=== PATIENT | male | born 1995 | race Caucasian/White ===

== ENCOUNTER 2017-04-27 14:00 | Emergency (ER) | payer OTHER ==
--- NOTE | 2017-04-27 14:17 | EDPHY ---
H & P Stated Complaint: testicular pain x 1 week Time Seen by Provider: 04/27/17 14:17 HPI/ROS: CHIEF COMPLAINT: Testicular pain HISTORY OF PRESENT ILLNESS: The patient presents the ED with a 1 week history of right testicular pain. The patient's symptoms have been constant. He did have some hematospremia earlier in the week. The patient reports he is in a monogamous relationship with a single partner. The patient denies any significant history of trauma. He has a history of traumatic brain injury. He has a history of appendectomy. The patient denies any dysuria. REVIEW OF SYSTEMS: A comprehensive 10 point review of systems is otherwise negative aside from elements mentioned in the history of present illness. Source: Patient Exam Limitations: No limitations - Personal History Current Tetanus Diphtheria and Acellular Pertussis (TDAP): Yes - Medical/Surgical History Hx Asthma: No Hx Chronic Respiratory Disease: No Hx Diabetes: No Hx Cardiac Disease: No Hx Renal Disease: No Hx Cirrhosis: No Hx Alcoholism: No Hx HIV/AIDS: No Hx Splenectomy or Spleen Trauma: No Other PMH: TBI 2011, mono - Social History Smoking Status: Never smoked - Physical Exam Exam: General Appearance: Alert, no distress Eyes: Pupils equal and round no pallor or injection ENT, Mouth: Mucous membranes moist Respiratory: There are no retractions, lungs are clear to auscultation Cardiovascular: Regular rate and rhythm Gastrointestinal: Abdomen is soft and nontender, no masses, bowel sounds normal Genitourinary: Right epididymal tenderness to palpation, normal testicular lie Neurological: Grossly normal motor exam Skin: Warm and dry, no rashes Musculoskeletal: Neck is supple nontender Extremities: symmetrical, full range of motion Constitutional: Initial Vital Signs Temperature (C) 36.9 C 04/27/17 14:06 Heart Rate 80 04/27/17 14:06 Respiratory Rate 18 04/27/17 14:06 Blood Pressure 106/72 04/27/17 14:06 O2 Sat (%) 97 04/27/17 14:06 O2 Delivery Mode Room Air Allergies/Adverse Reactions: No Known Allergies Allergy (Unverified 04/27/17 14:06) Home Medications: Medication Instructions Recorded Doxycycline Hyclate [Vibramycin 100 mg PO BID #20 cap 04/27/17 100 MG (*)] Medical Decision Making - Diagnostics Imaging Results: Imaging Impressions Testicular Ultrasound 04/27/17 14:07 Impression: No evidence of testicular torsion. Right epididymitis. Left varicocele. Results called to Dr. Dada Dorman at 3:15 PM Imaging: Discussed imaging studies w/ call center coordinator Radiologist, I viewed and interpreted images myself ED Course/Re-evaluation: The patient presents to the ED for evaluation of right testicular pain. The patient has evidence of epididymitis on his ultrasound. The patient will be started on antibiotics. He received 250 mg of IM ceftriaxone will be discharged home with doxycycline. The patient is encouraged to use NSAIDs for pain. The patient will be instructed to follow up with Urology for any unimproved symptoms. The patient has been instructed to return to the ED for markedly worsening symptoms or other concerns. Differential Diagnosis: Differential diagnosis considered includes testicular torsion, epididymitis, hernia, varicocele Departure - Departure Disposition: Home, Routine, Self-Care Clinical Impression: Acute epididymitis Condition: Good Instructions: Epididymitis (ED) Additional Instructions: 1. Take antibiotics as prescribed for next 10 days. 2. Take Ibuprofen or Motrin 600 mg by mouth three times a day. 3. Return to the ED for markedly worsening symptoms or other concerns. 4. Please follow up with urologist you have been referred to for any unimproved symptoms. Referrals: Palomo Brewer MD [Medical Doctor] - As per Instructions Prescriptions: Doxycycline Hyclate [Vibramycin 100 MG (*)] 100 mg PO BID #20 cap
[2017-04-27] MEDS ORDERED: CEFTRIAXONE IM 350 MG/ML SYRINGE IM ONE (15:25)
[2017-04-27 16:10] VITALS: BP 125/89; PULSE 89; RESP 16; TEMP 98.2; O2SAT 96
== END 2017-04-27 16:17 | disposition home or self-care (01) ==
DX: N45.1 Epididymitis (principal)
CPT/HCPCS: J0696

== ENCOUNTER 2017-04-29 01:06 | Emergency (ER) | payer OTHER ==
--- NOTE | 2017-04-29 01:56 | EDPHY ---
H & P Stated Complaint: r testicular pain, seen 04/27 dx with epididimyitis, pain worse HPI/ROS: HPI CHIEF COMPLAINT: Right testicular pain recent ER visit HISTORY OF PRESENT ILLNESS: This patient very pleasant 21-year-old male he is otherwise healthy does have significant past medical history for traumatic brain injury, presents emergency room of right testicular pain. Patient was seen here few days ago and had an ultrasound that showed epididymitis no torsion. He was given IM Rocephin, and started on doxycycline referred to Urology. He has been taking ibuprofen very infrequently. Presents back to the emergency room with ongoing right testicular pain. No new trauma. No fever. Denies any other complaints. Specifically denies abdominal pain. Past Medical History: TBI Past Surgical History: No recent surgery, craniotomy Social History: Denies daily use drugs alcohol tobacco products. Family History: Noncontributory ROS REVIEW OF SYSTEMS: A comprehensive 10 point review of systems is otherwise negative aside from elements mentioned in the history of present illness. Exam Constitutional tearful, triage nursing summary reviewed, vital signs reviewed, awake/alert. Eyes normal conjunctivae and sclera, EOMI, PERRLA. HENT normal inspection, atraumatic, moist mucus membranes, no epistaxis, neck supple/ no meningismus, no raccoon eyes. Respiratory clear to auscultation bilaterally, normal breath sounds, no respiratory distress, no wheezing. Cardiovascular rate normal, regular rhythm, no murmur, no edema, distal pulses normal. Gastrointestinal soft, non-tender, no rebound, no guarding, normal bowel sounds, no distension, no pulsatile mass. Genitourinary EXAM: Circumcised, normal cremasteric reflex, both descended testes appear to be normal lie. Mild tender palpation right testicle. Mild tender palpation right epididymis. Left testicle normal. Left epididymis normal. No scrotal cellulitis. No significant swelling on exam. No palpable hernia. Musculoskeletal no midline vertebral tenderness, full range of motion, no calf swelling, no tenderness of extremities, no meningismus, good pulses, neurovascularly intact. Skin pink, warm, & dry, no rash, skin atraumatic. Neurologic awake, alert and oriented x 3, AAOx3, moves all 4 extremities equally, motor intact, sensory intact, CN II-XII intact, normal cerebellar, normal vision, normal speech. Psychiatric normal mood/affect. Heme/Lymph/Immune no lymphadenopathy. Differential Diagnosis: Includes but is not limited to in a particular order worsening epididymitis, testicular torsion, varicocele, hernia Medical Decision Making: Plan for this patient Late[place]o pain control here in emergency room, ultrasound of the scrotum, urinalysis. Re-evaluation: ED ultrasound scrotal: Similar to previous showed sound. Good blood flow to both testes. No torsion. [id number]: I did re-evaluate the patient at this time. Patient is resting comfortably no acute distress. Feels much better after [place]. Ultrasound is unchanged from previous ultrasound no torsion. Recommend patient returns emergency room if develops worsening symptoms questions or concerns includes fever, worsening pain. Continue doxycycline. [place]xo for home. Follow up with Urology. Source: Patient - Personal History Current Tetanus Diphtheria and Acellular Pertussis (TDAP): Yes - Medical/Surgical History Hx Asthma: No Hx Chronic Respiratory Disease: No Hx Diabetes: No Hx Cardiac Disease: No Hx Renal Disease: No Hx Cirrhosis: No Hx Alcoholism: No Hx HIV/AIDS: No Hx Splenectomy or Spleen Trauma: No Other PMH: TBI 2011, mono 2010 - Social History Smoking Status: Never smoked Constitutional: Initial Vital Signs Temperature (C) 37 C 04/29/17 01:09 Heart Rate 92 04/29/17 01:09 Respiratory Rate 20 04/29/17 01:09 Blood Pressure 140/88 H 04/29/17 01:09 O2 Sat (%) 99 04/29/17 01:09 O2 Delivery Mode Room Air Allergies/Adverse Reactions: No Known Allergies Allergy (Unverified 04/27/17 14:06) Home Medications: Medication Instructions Recorded Doxycycline Hyclate [Vibramycin 100 mg PO BID #20 cap 04/27/17 100 MG (*)] Medical Decision Making - Data Points Laboratory Results: 04/29/17 04:00 Urine Color YELLOW Urine Appearance CLEAR Urine pH 6.0 (5.0-7.5) Ur Specific Ovid 1.025 (1.002-1.030) Urine Protein NEGATIVE (NEGATIVE) Urine Ketones 1+ H (NEGATIVE) Urine Blood NEGATIVE (NEGATIVE) Urine Nitrate NEGATIVE (NEGATIVE) Urine Bilirubin NEGATIVE (NEGATIVE) Urine Urobilinogen 2.0 EU H EU (0.2-1.0) Ur Leukocyte Esterase TRACE H (NEGATIVE) Urine RBC 3-5 /hpf H /hpf (0-3) Urine WBC 10-15 /hpf H /hpf (0-3) Ur Epithelial Cells NONE SEEN /lpf /lpf (NONE-1+) Urine Mucus 1+ /lpf /lpf (NONE-1+) Urine Sperm PRESENT /hpf /hpf (NONE SEEN) Urine Glucose NEGATIVE (NEGATIVE) Medications Given: Discontinued Medications Hydrocodone Bitart/Acetaminophen ([place] 5/325) 1 tab PO EDNOW ONE Stop: 04/29/17 02:09 Last Admin: 04/29/17 02:12 Dose: 1 tab Departure - Departure Disposition: Home, Routine, Self-Care Clinical Impression: Testicular pain, right Condition: Fair Instructions: Testicle Pain (ED) Additional Instructions: 1. Stay well-hydrated drink lots of fluids. 2. Take her antibiotics as prescribed. 3. Follow up with Urology. 4. Return emergency room if there is worsening symptoms questions or concerns. Referrals: NONE *PRIMARY CARE P,. [Primary Care Provider] - As per Instructions Palomo Brewer MD [Medical Doctor] - As per Instructions
[2017-04-29] MEDS ORDERED: HYDROCODONE/APAP 5/325 TAB PO ONE (02:08)
[2017-04-29] MEDS ORDERED: HYDROCOD/APAP 5/325 PREPACK#6 BTL TAKEHOME ONE ×2 (02:08→05:27)
[2017-04-29 04:15] LABS: COLOR YELLOW; LEUKOCYTE ESTERASE,URINE TRACE (NEGATIVE); NITRITE,URINE NEGATIVE (NEGATIVE)
[2017-04-29 04:18] LABS: MUCUS 1+ /lpf (NONE-1+)
[2017-04-29 05:33] VITALS: BP 120/60; PULSE 88; RESP 14; TEMP 97.7; O2SAT 98
== END 2017-04-29 05:32 | disposition home or self-care (01) ==
DX: N50.811 Right testicular pain (principal)